=== PATIENT | female | born 1955 ===

== ENCOUNTER → 2018-08-23 21:13 | Outpatient (ROUT) | payer OTHER, SELFPAY ==
[2018-08-23 21:43] LABS: Add Manual Diff / Slide Review NO; Basophils Absolute Auto 100 /uL (0-100); Basophils Percent Auto 0.8 % (0-2); Eosinophils Absolute Auto 300 /uL (0-450); Eosinophils Percent Auto 3.9 % (2-4); Hematocrit 39.8 % (36-46); Hemoglobin 13.4 g/dL (12.0-16.0); Lymphocytes Absolute Auto 2400 /uL (1100-4500); Lymphocytes Percent Auto 33.7 % (25-40); Mean Corpuscular HGB Conc 33.8 % (30-36); Mean Corpuscular Volume 97.8 fL (80-100); Monocytes Absolute Auto 500 /uL (0-900); Monocytes Percent Auto 7.1 % (3-14); Neutrophils Absolute Auto 3900 /uL (1500-7000); Neutrophils Percent Auto 54.5 % (50-75); Platelet Count 281 X10^3/uL (150-400); Red Blood Cell Count 4.07 X10^6/uL (4.0-5.2); Red Cell Distribution Width 13.2 % (11.6-14.8); White Blood Cell Count 7.1 X10^3/uL (4.5-11.0)
[2018-08-23 23:10] LABS: Hemoglobin A1C% w Est Avg Glu 5.3 % (4.0-6.0)
[2018-08-24 00:39] LABS: Alanine Aminotransferase 24 IU/L (9-52); Albumin 4.5 g/dL (3.5-5.0); Albumin Globulin Ratio 1.7 (1.0-2.8); Alkaline Phosphatase 74 U/L (38-126); Aspartate Aminotransferase 27 IU/L (14-36); BUN Creatinine Ratio 22.5 (6-22); Bilirubin Total 0.4 mg/dL (0.2-1.3); Blood Urea Nitrogen 18 mg/dL (7-17); Calcium 10.1 mg/dL (8.4-10.2); Carbon Dioxide 25 mmol/L (22-32); Chloride 103 mmol/L (98-107); Estimated Glomerular Filt Rate > 60.0 mL/min (>60); Globulin 2.6 g/dL (1.7-4.1); Glucose 90 mg/dL (80-110); HEMOLYSIS < 15 (0-50); Sodium 139 mmol/L (137-145); Total Protein 7.1 g/dL (6.3-8.2); Uric Acid 4.8 mg/dL (2.5-6.2)
[2018-08-24 00:44] LABS: High Sensitivity CRP - Cardiac 3.9 mg/L (1.0-3.0)
[2018-08-24 01:28] LABS: Free T3, Triiodothyronine Free 3.37 pg/mL (2.77-5.27); Free T4, Direct Thyroxine 1.33 ng/dL (0.78-2.19)
[2018-08-24 01:42] LABS: Thyroid Stimulating Hormone 1.06 uIU/mL (0.47-4.68)
[2018-08-26 15:35] LABS: Rubeola Measles IgG > 300.00 AU/mL (< 25.00)
[2018-08-26 20:05] LABS: ANA Screen, IFA Positive (Negative); ANA Titer 1:40 titer (<1:40)
== END ==
PROVIDERS: Visit Provider Family Medicine
DX: Z20.828 Contact with and (suspected) exposure to other viral communicable diseases (principal); E03.9 Hypothyroidism, unspecified; R53.83 Other fatigue; M19.90 Unspecified osteoarthritis, unspecified site
CPT/HCPCS: 36415; 80053; 83036; 84439; 84443; 84481; 84550; 85025; 86038; 86140; 86735; 86762; 86765

== ENCOUNTER → 2018-09-05 21:20 | Outpatient (ROUT) | payer OTHER, SELFPAY ==
[2018-09-05 23:04] LABS: Ferritin 63.6 ng/mL (11.1-264)
[2018-09-05 23:18] LABS: Vitamin B12 620 pg/mL (239-931)
[2018-09-05 23:27] LABS: HEMOLYSIS < 15 (0-50); Iron 71 ug/dL (37-170)
[2018-09-05 23:39] LABS: Percent Iron Saturation 24 % (15-50); Total Iron Binding Capacity 298 ug/dL (265-497); Transferrin 232 mg/dL (206-381)
== END ==
PROVIDERS: Visit Provider Family Medicine
DX: R53.83 Other fatigue (principal)
CPT/HCPCS: 36415; 82607; 82728; 83540; 83550